=== PATIENT | female | born 1955 | race African-American/Black ===

== ENCOUNTER → 2018-08-18 | Outpatient (CLI) | payer MEDICARE, MEDICAID | END | disposition home or self-care (01) | LOC: US 10:40 | PROVIDERS: ATTEND Internal Medicine | DX: K76.0 Fatty (change of) liver, not elsewhere classified (principal); Z90.49 Acquired absence of other specified parts of digestive tract | CPT/HCPCS: 76700; 76856 ==

== ENCOUNTER 2019-08-21 13:01 | Inpatient (IN) | payer MEDICARE, MEDICAID ==
[~2019-08-21] VITALS: Ht 175.3 cm; Wt 110.2 kg
[2019-08-21] MEDS ORDERED: AZITHROMYCIN 500 MG in DEXT 5% WATER 250 ML IV STA (14:14)
[2019-08-21] MEDS ORDERED: CEFTRIAXONE 1 G PREMIX 50 ML IV ONE (14:15)
[2019-08-21 15:37] LABS: BG BASE EXCESS 3.6 mmol/L (-2.0-2.0); BG CARBOXYHEMOGLOBIN 0.8 % (0.5-1.5); BG FRACTION INSPIRED OXYGEN 32; BG HCO3 ACT 27.8 mmol/L (22.0-26.0); BG OXYHEMOGLOBIN 95.2 % (94.0-97.0); BG PCO2 40.7 mmHg (35.0-45.0); BG PH 7.452 (7.350-7.450); BG PO2 77.8 mmHg (75.0-100.0); BG SAMPLE SITE RIGHT BRACHIAL; BG TOTAL HEMOGLOBIN 13.7 g/dL (12.0-18.0); BG VENT MODE NASAL CANNULA
[2019-08-21 18:45] LABS: BASOPHILS % 0.7 % (0.0-2.0); EOSINOPHILS % 0.1 % (0.0-5.0); HEMATOCRIT. 39.4 % (36.0-48.0); HEMOGLOBIN. 13.2 g/dL (12.0-16.0); LYMPHOCYTES % 25.3 % (20.0-50.0); MEAN CORPUSCULAR HEMOGLOBIN 29.7 pg (28.0-32.0); MEAN CORPUSCULAR VOLUME 88.3 fL (81.0-99.0); MEAN PLATELET VOLUME 8.4 fl (7.4-10.4); MONOCYTES % 14.9 % (2.0-8.0); PLATELET 304 x1000/uL (130-400); RED BLOOD CELL COUNT 4.46 mill/uL (4.2-5.4); RED CELL DISTRIBUTION WIDTH 12.3 % (11.6-14.6)
[2019-08-21 18:51] LABS: CHLORIDE 98 mEq/L (98-107)
[2019-08-21 18:54] LABS: PROTHROMBIN TIME 10.7 sec (9.6-11.0)
[2019-08-21] MEDS ORDERED: ENOXAPARIN 120MG/0.8ML SYR SUBCUT ONE (19:15)
[2019-08-21] MEDS ORDERED: DEXTROSE 50% WATER 50ML SYRINGE IV ONE (19:30)
[2019-08-21] MEDS: SODIUM CHLORIDE 0.9% 1,000 ML IV SCH (22:54)
[2019-08-21] MEDS ORDERED: ONDANSETRON HCL 4MG/2ML INJ IV PRN (23:00)
[2019-08-22 05:05] LABS: CHLORIDE 100 mEq/L (98-107)
[2019-08-22 05:07] LABS: HEMATOCRIT. 39.1 % (36.0-48.0); HEMOGLOBIN. 12.9 g/dL (12.0-16.0); MEAN CORPUSCULAR HEMOGLOBIN 29.2 pg (28.0-32.0); MEAN CORPUSCULAR VOLUME 88.3 fL (81.0-99.0); MEAN PLATELET VOLUME 8.3 fl (7.4-10.4); PLATELET 312 x1000/uL (130-400); RED BLOOD CELL COUNT 4.43 mill/uL (4.2-5.4); RED CELL DISTRIBUTION WIDTH 12.3 % (11.6-14.6)
[2019-08-22 05:14] LABS: CREATINE KINASE 81 IU/L (26-192)
[2019-08-22 05:16] LABS: CREATINE KINASE MB FRACTION < 1.0 ng/mL (0.5-3.6)
[2019-08-22 07:33] LABS: ATYPICAL LYMPHOCYTES 1; PLATELET ESTIMATE NORMAL
[2019-08-22] MEDS ORDERED: LIDOCAINE HCL/PF 1% 2ML VIAL ONE (09:46)
[2019-08-22] MEDS: SODIUM CHLORIDE 0.9% 1,000 ML IV SCH (12:14)
[2019-08-22] MEDS: CEFTRIAXONE 1 G PREMIX 50 ML IV SCH ×2 (15:00→18:43)
[2019-08-22] MEDS ORDERED: AZITHROMYCIN 500 MG in DEXT 5% WATER 250 ML IV SCH (15:00)
[2019-08-22] MEDS ORDERED: FUROSEMIDE 20MG/2ML VIAL IVP SCH (15:15)
[2019-08-22 15:32] LABS: BG BASE EXCESS 2.1 mmol/L (-2.0-2.0); BG CARBOXYHEMOGLOBIN 0.7 % (0.5-1.5); BG DEOXYHEMOGLOBIN 8.8 % (0.0-5.0); BG HCO3 ACT 25.1 mmol/L (22.0-26.0); BG METHEMOGLOBIN 0.3 % (0.0-1.5); BG OXYGEN SATURATION 91.1 % (92.0-98.5); BG OXYHEMOGLOBIN 90.2 % (94.0-97.0); BG PCO2 34.3 mmHg (35.0-45.0); BG PH 7.483 (7.350-7.450); BG PO2 59.1 mmHg (75.0-100.0); BG SAMPLE SITE LEFT RADIAL; BG TOTAL HEMOGLOBIN 13.5 g/dL (12.0-18.0); BG VENT MODE ROOM AIR
[2019-08-22] MEDS ORDERED: POTASSIUM CHLORIDE INJ 40 MEQ in DEXT 5% WATER 250 ML IV NR (16:30)
[2019-08-22] MEDS: ENOXAPARIN 30MG/0.3ML SYR SUBCUT SCH (22:30)
[2019-08-22 22:34] VITALS: BP 132/58
[2019-08-23 04:00] VITALS: BP 117/75
[2019-08-23 08:00] VITALS: BP 143/79
[2019-08-23] MEDS ORDERED: CEFTRIAXONE 1 G PREMIX 50 ML IV SCH (09:00)
[2019-08-23] MEDS ORDERED: AZITHROMYCIN 250 MG in DEXT 5% WATER 250 ML IV SCH (09:00)
[2019-08-23 09:50] LABS: HEMATOCRIT. 41.8 % (36.0-48.0); HEMOGLOBIN. 13.7 g/dL (12.0-16.0); MEAN CORPUSCULAR HEMOGLOBIN 29.3 pg (28.0-32.0); MEAN CORPUSCULAR VOLUME 89.6 fL (81.0-99.0); MEAN PLATELET VOLUME 8.5 fl (7.4-10.4); PLATELET 337 x1000/uL (130-400); RED BLOOD CELL COUNT 4.67 mill/uL (4.2-5.4); RED CELL DISTRIBUTION WIDTH 12.1 % (11.6-14.6)
[2019-08-23 09:57] LABS: CHLORIDE 101 mEq/L (98-107)
[2019-08-23] MEDS: ENOXAPARIN 30MG/0.3ML SYR SUBCUT SCH ×2 (10:04→22:18)
[2019-08-23 10:07] LABS: CREATINE KINASE MB FRACTION < 1.0 ng/mL (0.5-3.6)
[2019-08-23 10:18] LABS: PLATELET ESTIMATE NORMAL
[2019-08-23 12:00] VITALS: BP 128/68
[2019-08-23] MEDS ORDERED: AZITHROMYCIN 500 MG in DEXT 5% WATER 250 ML IV SCH (15:00)
[2019-08-23] MEDS: AZITHROMYCIN 250 MG TABLET PO SCH (15:17)
[2019-08-23 16:00] VITALS: BP 127/71
[2019-08-23] MEDS ORDERED: FUROSEMIDE 20MG/2ML VIAL IVP NR (16:15)
[2019-08-23] MEDS: CEFTRIAXONE SODIUM 1 G/VIAL IM SCH (16:57)
[2019-08-23] MEDS: LIDOCAINE HCL/PF 1% 10 MG/ML 5ML VIAL IJ SCH (16:57)
[2019-08-23] MEDS ORDERED: FUROSEMIDE 20MG TABLET PO ONE (17:00)
[2019-08-23] MEDS ORDERED: FUROSEMIDE 20MG TABLET PO NR (17:00)
[2019-08-23 18:16] LABS: COVID-19 PCR RNA DETECTED
[2019-08-23 18:17] LABS: COVID-19 PCR RNA NOT DETECTED
[2019-08-24] VITALS: BP 114/59
[2019-08-24 04:00] VITALS: BP 144/87
[2019-08-24 08:00] VITALS: BP 134/100
[2019-08-24] MEDS: ENOXAPARIN 30MG/0.3ML SYR SUBCUT SCH ×2 (09:26→22:05)
[2019-08-24] MEDS: CEFTRIAXONE SODIUM 1 G/VIAL IM SCH (09:27)
[2019-08-24] MEDS: AZITHROMYCIN 250 MG TABLET PO SCH (09:27)
[2019-08-24] MEDS: LIDOCAINE HCL/PF 1% 10 MG/ML 5ML VIAL IJ SCH (09:28)
[2019-08-24 12:00] VITALS: BP 140/75
[2019-08-24 16:00] VITALS: BP 121/61
[2019-08-24] MEDS ORDERED: POTASSIUM CHLORIDE 20MEQ TABLET SR PO NR (16:14)
[2019-08-24 20:00] VITALS: BP 109/70
[2019-08-24] MEDS: ACETAMINOPHEN 325MG TABLET PO PRN (22:05)
[2019-08-25] VITALS: BP 139/75
[2019-08-25 04:00] VITALS: BP 154/81
[2019-08-25 06:00] VITALS: BP 154/81
[2019-08-25] MEDS: SODIUM CHLORIDE 0.9% 1,000 ML IV SCH ×2 (06:40→21:48)
[2019-08-25 08:00] VITALS: BP 123/78
[2019-08-25] MEDS: ENOXAPARIN 30MG/0.3ML SYR SUBCUT SCH ×2 (09:28→21:43)
[2019-08-25] MEDS: AZITHROMYCIN 250 MG TABLET PO SCH (09:28)
[2019-08-25] MEDS: LIDOCAINE HCL/PF 1% 10 MG/ML 5ML VIAL IJ SCH (09:29)
[2019-08-25] MEDS: CEFTRIAXONE SODIUM 1 G/VIAL IM SCH (09:29)
[2019-08-25 10:19] LABS: HEMATOCRIT. 39.7 % (36.0-48.0); MEAN CORPUSCULAR HEMOGLOBIN 29.2 pg (28.0-32.0); MEAN CORPUSCULAR VOLUME 88.8 fL (81.0-99.0); MEAN PLATELET VOLUME 8.7 fl (7.4-10.4); PLATELET 415 x1000/uL (130-400); RED BLOOD CELL COUNT 4.47 mill/uL (4.2-5.4); RED CELL DISTRIBUTION WIDTH 12.3 % (11.6-14.6)
[2019-08-25 10:28] LABS: CHLORIDE 106 mEq/L (98-107)
[2019-08-25 11:49] LABS: PLATELET ESTIMATE INCREASED
[2019-08-25 12:00] VITALS: BP 146/82
[2019-08-25] MEDS: POTASSIUM CHLORIDE 20MEQ TABLET SR PO SCH (18:01)
[2019-08-25 20:00] VITALS: BP 150/82
[2019-08-26] VITALS: BP 134/67
[2019-08-26 04:00] VITALS: BP 147/73
[2019-08-26] MEDS: POTASSIUM CHLORIDE 20MEQ TABLET SR PO SCH (04:58)
[2019-08-26] MEDS ORDERED: POTASSIUM CHLORIDE 20MEQ TABLET SR PO SCH (05:00)
[2019-08-26 08:00] VITALS: BP 152/56
[2019-08-26] MEDS: LIDOCAINE HCL/PF 1% 10 MG/ML 5ML VIAL IJ SCH (10:00)
[2019-08-26] MEDS: CEFTRIAXONE SODIUM 1 G/VIAL IM SCH (10:00)
[2019-08-26] MEDS: AZITHROMYCIN 250 MG TABLET PO SCH (10:01)
[2019-08-26] MEDS: SODIUM CHLORIDE 0.9% 1,000 ML IV SCH ×2 (10:01→21:36)
[2019-08-26] MEDS: ACETAMINOPHEN 325MG TABLET PO PRN (10:01)
[2019-08-26] MEDS: ENOXAPARIN 30MG/0.3ML SYR SUBCUT SCH ×2 (10:01→21:36)
[2019-08-26 12:00] VITALS: BP 145/73
[2019-08-26 16:00] VITALS: BP 146/76
[2019-08-26 20:53] VITALS: BP 145/64
[2019-08-27 00:48] VITALS: BP 135/72
[2019-08-27 04:00] VITALS: BP 141/74
[2019-08-27 08:00] VITALS: BP 152/76
[2019-08-27] MEDS: LIDOCAINE HCL/PF 1% 10 MG/ML 5ML VIAL IJ SCH (09:08)
[2019-08-27] MEDS: CEFTRIAXONE SODIUM 1 G/VIAL IM SCH (09:08)
[2019-08-27] MEDS: ENOXAPARIN 30MG/0.3ML SYR SUBCUT SCH ×2 (09:08→21:07)
[2019-08-27 12:00] VITALS: BP 134/71
[2019-08-27] MEDS: SODIUM CHLORIDE 0.9% 1,000 ML IV SCH (12:33)
[2019-08-27 16:00] VITALS: BP 127/76
[2019-08-27 20:00] VITALS: BP 149/77
[2019-08-28] VITALS: BP 145/94
[2019-08-28] MEDS: SODIUM CHLORIDE 0.9% 1,000 ML IV SCH ×2 (01:00→14:09)
[2019-08-28 04:00] VITALS: BP 140/62
[2019-08-28 08:00] VITALS: BP 144/60
[2019-08-28 08:38] LABS: BASOPHILS % 0.2 % (0.0-2.0); EOSINOPHILS % 6.4 % (0.0-5.0); HEMATOCRIT. 42.1 % (36.0-48.0); HEMOGLOBIN. 13.6 g/dL (12.0-16.0); MEAN CORPUSCULAR HEMOGLOBIN 28.7 pg (28.0-32.0); MEAN CORPUSCULAR VOLUME 88.8 fL (81.0-99.0); MEAN PLATELET VOLUME 8.6 fl (7.4-10.4); MONOCYTES % 12.6 % (2.0-8.0); NEUTROPHILS % 35.8 % (40.0-76.0); PLATELET 455 x1000/uL (130-400); RED BLOOD CELL COUNT 4.74 mill/uL (4.2-5.4); RED CELL DISTRIBUTION WIDTH 12.2 % (11.6-14.6)
[2019-08-28 08:39] LABS: CHLORIDE 109 mEq/L (98-107)
[2019-08-28] MEDS: ENOXAPARIN 30MG/0.3ML SYR SUBCUT SCH ×2 (09:09→20:31)
[2019-08-28] MEDS ORDERED: POTASSIUM CHLORIDE 20MEQ TABLET SR PO NR (11:15)
[2019-08-28 12:00] VITALS: BP 129/71
[2019-08-28 16:00] VITALS: BP 129/71
[2019-08-28 20:00] VITALS: BP 127/58
[2019-08-28] MEDS: LORAZEPAM 1MG TABLET PO PRN (20:31)
[2019-08-29] VITALS: BP 149/77
[2019-08-29] MEDS: SODIUM CHLORIDE 0.9% 1,000 ML IV SCH ×2 (06:39→20:59)
[2019-08-29] MEDS: ENOXAPARIN 30MG/0.3ML SYR SUBCUT SCH ×2 (10:28→21:00)
[2019-08-29 12:00] VITALS: BP 128/83
[2019-08-29 16:00] VITALS: BP 130/66
[2019-08-29 20:00] VITALS: BP_SYST 82; BP_SYST 99; BP_DIAS 67
[2019-08-29] MEDS: LORAZEPAM 1MG TABLET PO PRN (21:00)
[2019-08-30 00:33] VITALS: BP 143/76
[2019-08-30 04:00] VITALS: BP 151/68
[2019-08-30 08:00] VITALS: BP 129/87
[2019-08-30] MEDS: ENOXAPARIN 30MG/0.3ML SYR SUBCUT SCH ×2 (09:58→21:18)
[2019-08-30 12:00] VITALS: BP 142/67
[2019-08-30 16:00] VITALS: BP 131/72
[2019-08-30 20:00] VITALS: BP 127/62
[2019-08-30] MEDS: SODIUM CHLORIDE 0.9% 1,000 ML IV SCH (20:14)
[2019-08-30] MEDS: LORAZEPAM 1MG TABLET PO PRN (21:18)
[2019-08-31] VITALS: BP 128/67
[2019-08-31 04:00] VITALS: BP 130/65
[2019-08-31 07:30] VITALS: BP 126/71
[2019-08-31] MEDS: ENOXAPARIN 30MG/0.3ML SYR SUBCUT SCH ×2 (09:24→21:26)
[2019-08-31] MEDS: SODIUM CHLORIDE 0.9% 1,000 ML IV SCH (09:34)
[2019-08-31 12:00] VITALS: BP 122/69
[2019-08-31 16:15] VITALS: BP 140/65
[2019-08-31 20:00] VITALS: BP 125/85
[2019-09-01] VITALS: BP 122/68
[2019-09-01] MEDS: LORAZEPAM 1MG TABLET PO PRN (00:21)
[2019-09-01 04:16] VITALS: BP 118/63
[2019-09-01 08:00] VITALS: BP 118/75
[2019-09-01] MEDS: ENOXAPARIN 30MG/0.3ML SYR SUBCUT SCH ×2 (10:25→20:55)
[2019-09-01 12:00] VITALS: BP 143/57
[2019-09-01 16:00] VITALS: BP 127/79
[2019-09-01 20:00] VITALS: BP 123/69
[2019-09-02] VITALS: BP 124/52
[2019-09-02 04:00] VITALS: BP 133/86
[2019-09-02] MEDS: LORAZEPAM 1MG TABLET PO PRN (04:02)
[2019-09-02 08:00] VITALS: BP 131/84
[2019-09-02] MEDS: ENOXAPARIN 30MG/0.3ML SYR SUBCUT SCH ×3 (10:42→21:14)
[2019-09-02] MEDS ORDERED: DIPHENHYDRAMINE 25MG CAPSULE PO NR (11:30)
[2019-09-02 12:00] VITALS: BP 144/80
[2019-09-02 16:00] VITALS: BP 125/61
[2019-09-02 20:00] VITALS: BP 128/74
[2019-09-02] MEDS: ZOLPIDEM TARTRATE 5MG TABLET PO PRN (22:21)
[2019-09-03] VITALS: BP 109/70
[2019-09-03 04:00] VITALS: BP 112/72
[2019-09-03 08:00] VITALS: BP 149/83
[2019-09-03] MEDS: ENOXAPARIN 30MG/0.3ML SYR SUBCUT SCH ×2 (09:37→20:34)
[2019-09-03 12:00] VITALS: BP 138/82
[2019-09-03 16:00] VITALS: BP 142/48
[2019-09-03 20:00] VITALS: BP 113/65
[2019-09-03] MEDS: ZOLPIDEM TARTRATE 5MG TABLET PO PRN (20:34)
[2019-09-04] VITALS: BP 120/65
[2019-09-04 04:00] VITALS: BP 126/62
[2019-09-04] MEDS: SODIUM CHLORIDE 0.9% 1,000 ML IV SCH ×2 (06:13→20:14)
[2019-09-04 08:00] VITALS: BP 133/84
[2019-09-04] MEDS: ENOXAPARIN 30MG/0.3ML SYR SUBCUT SCH ×2 (10:03→21:14)
[2019-09-04 12:00] VITALS: BP_SYST 133
[2019-09-04] MEDS: HYDROCORTISONE 2.5% CREAM 20GM TOP SCH (17:35)
[2019-09-04 20:00] VITALS: BP 115/51
[2019-09-04] MEDS: ZOLPIDEM TARTRATE 5MG TABLET PO PRN (22:15)
[2019-09-04] MEDS: DIPHENHYDRAMINE 25MG CAPSULE PO PRN (23:34)
[2019-09-05] VITALS: BP 128/76
[2019-09-05 04:00] VITALS: BP 124/66
[2019-09-05] MEDS: HYDROCORTISONE 2.5% CREAM 20GM TOP SCH (05:14)
[2019-09-05 08:00] VITALS: BP 130/65
[2019-09-05] MEDS: SODIUM CHLORIDE 0.9% 1,000 ML IV SCH ×2 (09:34→22:54)
[2019-09-05] MEDS: ENOXAPARIN 30MG/0.3ML SYR SUBCUT SCH ×2 (09:55→20:38)
[2019-09-05 12:00] VITALS: BP 131/69
[2019-09-05] MEDS: DIPHENHYDRAMINE 25MG CAPSULE PO PRN (12:40)
[2019-09-05 20:00] VITALS: BP 112/63
[2019-09-05] MEDS ORDERED: NYSTATIN 100,000 UNITS/GM CREAM 15GM TOP SCH (22:00)
[2019-09-06] VITALS: BP 124/59
[2019-09-06] MEDS: HYDROCORTISONE 2.5% CREAM 20GM TOP SCH ×3 (00:17→18:55)
[2019-09-06] MEDS: DIPHENHYDRAMINE 25MG CAPSULE PO PRN ×2 (00:19→06:40)
[2019-09-06 04:00] VITALS: BP 119/57
[2019-09-06 08:00] VITALS: BP 119/52
[2019-09-06] MEDS: NYSTATIN POWDER 15GM TOP SCH ×3 (10:01→17:48)
[2019-09-06] MEDS: ENOXAPARIN 30MG/0.3ML SYR SUBCUT SCH ×2 (10:01→20:00)
[2019-09-06] MEDS: SODIUM CHLORIDE 0.9% 1,000 ML IV SCH (11:18)
[2019-09-06 12:00] VITALS: BP 118/59
[2019-09-06 20:00] VITALS: BP 128/62
[2019-09-06] MEDS: ZOLPIDEM TARTRATE 5MG TABLET PO PRN (21:56)
[2019-09-07] VITALS: BP 103/55
[2019-09-07] MEDS: SODIUM CHLORIDE 0.9% 1,000 ML IV SCH ×2 (01:34→14:13)
[2019-09-07 04:00] VITALS: BP 124/63
[2019-09-07] MEDS: HYDROCORTISONE 2.5% CREAM 20GM TOP SCH ×2 (05:40→17:48)
[2019-09-07 08:00] VITALS: BP 127/76
[2019-09-07] MEDS: ENOXAPARIN 30MG/0.3ML SYR SUBCUT SCH ×2 (08:40→20:02)
[2019-09-07] MEDS: NYSTATIN POWDER 15GM TOP SCH ×3 (08:40→17:45)
[2019-09-07 12:00] VITALS: BP 124/67
[2019-09-07 16:04] VITALS: BP 112/43
[2019-09-07 20:00] VITALS: BP 119/57
[2019-09-07] MEDS: ZOLPIDEM TARTRATE 5MG TABLET PO PRN (20:14)
[2019-09-07] MEDS: DIPHENHYDRAMINE 25MG CAPSULE PO PRN (22:47)
[2019-09-08] VITALS: BP 147/90
[2019-09-08 04:00] VITALS: BP 109/53
[2019-09-08] MEDS: SODIUM CHLORIDE 0.9% 1,000 ML IV SCH ×2 (04:14→17:12)
[2019-09-08] MEDS: HYDROCORTISONE 2.5% CREAM 20GM TOP SCH ×2 (04:19→17:12)
[2019-09-08] MEDS: DIPHENHYDRAMINE 25MG CAPSULE PO PRN ×2 (04:21→20:28)
[2019-09-08 08:00] VITALS: BP 126/54
[2019-09-08] MEDS: ENOXAPARIN 30MG/0.3ML SYR SUBCUT SCH ×2 (08:39→20:44)
[2019-09-08] MEDS: NYSTATIN POWDER 15GM TOP SCH ×3 (08:40→17:12)
[2019-09-08 12:00] VITALS: BP 119/70
[2019-09-08 16:00] VITALS: BP 134/57
[2019-09-08 20:00] VITALS: BP 132/52
[2019-09-09] VITALS: BP 118/59
[2019-09-09] MEDS: DIPHENHYDRAMINE 25MG CAPSULE PO PRN ×4 (02:30→23:31)
[2019-09-09 04:00] VITALS: BP 112/52
[2019-09-09] MEDS: HYDROCORTISONE 2.5% CREAM 20GM TOP SCH ×2 (06:16→17:14)
[2019-09-09] MEDS: SODIUM CHLORIDE 0.9% 1,000 ML IV SCH ×2 (06:17→20:14)
[2019-09-09 08:00] VITALS: BP 149/74
[2019-09-09] MEDS: ENOXAPARIN 30MG/0.3ML SYR SUBCUT SCH ×2 (08:25→20:56)
[2019-09-09] MEDS: NYSTATIN POWDER 15GM TOP SCH ×3 (08:25→17:14)
[2019-09-09 12:00] VITALS: BP 120/60
[2019-09-09 16:00] VITALS: BP 130/70
[2019-09-09 20:00] VITALS: BP 120/71
[2019-09-10] VITALS: BP 121/53
[2019-09-10 04:00] VITALS: BP 114/60
[2019-09-10] MEDS: HYDROCORTISONE 2.5% CREAM 20GM TOP SCH ×2 (06:00→17:28)
[2019-09-10] MEDS: DIPHENHYDRAMINE 25MG CAPSULE PO PRN ×2 (06:00→20:57)
[2019-09-10 07:52] LABS: HEMOGLOBIN 14.4 g/dL (12.0-16.0); MEAN CORPUSCULAR HEMOGLOBIN 29.6 pg (28.0-32.0); MEAN CORPUSCULAR VOLUME 90.4 fL (81.0-99.0); PLATELET 208 x1000/uL (130-400); RED BLOOD CELL COUNT 4.87 mill/uL (4.2-5.4); RED CELL DISTRIBUTION WIDTH 13.5 % (11.6-14.6)
[2019-09-10 08:00] VITALS: BP 136/57
[2019-09-10 08:00] LABS: CHLORIDE 107 mEq/L (98-107)
[2019-09-10] MEDS: ENOXAPARIN 30MG/0.3ML SYR SUBCUT SCH ×2 (08:45→20:57)
[2019-09-10] MEDS: NYSTATIN POWDER 15GM TOP SCH ×3 (08:45→17:28)
[2019-09-10] MEDS: SODIUM CHLORIDE 0.9% 1,000 ML IV SCH ×2 (09:00→20:58)
[2019-09-10 12:00] VITALS: BP 125/57
[2019-09-10 16:00] VITALS: BP 130/78
[2019-09-10 20:51] VITALS: BP 142/61
[2019-09-11] VITALS: BP 107/53
[2019-09-11] MEDS: DIPHENHYDRAMINE 25MG CAPSULE PO PRN ×3 (04:20→23:13)
[2019-09-11 04:42] VITALS: BP 108/61
[2019-09-11] MEDS: HYDROCORTISONE 2.5% CREAM 20GM TOP SCH ×2 (06:35→17:12)
[2019-09-11 08:00] VITALS: BP 127/79
[2019-09-11] MEDS: NYSTATIN POWDER 15GM TOP SCH ×3 (08:19→17:12)
[2019-09-11] MEDS: ENOXAPARIN 30MG/0.3ML SYR SUBCUT SCH ×2 (08:19→20:33)
[2019-09-11] MEDS: SODIUM CHLORIDE 0.9% 1,000 ML IV SCH (11:20)
[2019-09-11 12:00] VITALS: BP 141/63
[2019-09-11 16:00] VITALS: BP 123/60
[2019-09-11 20:44] VITALS: BP 117/55
[2019-09-12 00:09] VITALS: BP 122/74
[2019-09-12] MEDS: SODIUM CHLORIDE 0.9% 1,000 ML IV SCH ×2 (01:34→14:02)
[2019-09-12 04:00] VITALS: BP 121/68
[2019-09-12] MEDS: HYDROCORTISONE 2.5% CREAM 20GM TOP SCH ×2 (05:37→17:54)
[2019-09-12 08:00] VITALS: BP 120/59
[2019-09-12] MEDS: NYSTATIN POWDER 15GM TOP SCH ×3 (08:13→17:54)
[2019-09-12] MEDS: ENOXAPARIN 30MG/0.3ML SYR SUBCUT SCH ×2 (08:13→22:17)
[2019-09-12] MEDS: DIPHENHYDRAMINE 25MG CAPSULE PO PRN ×3 (09:09→22:17)
[2019-09-12 12:00] VITALS: BP 122/74
[2019-09-12 16:00] VITALS: BP 141/66
[2019-09-12 20:00] VITALS: BP 122/71
[2019-09-13 00:47] VITALS: BP 118/68
[2019-09-13] MEDS: SODIUM CHLORIDE 0.9% 1,000 ML IV SCH ×2 (03:41→16:14)
[2019-09-13 04:00] VITALS: BP 138/73
[2019-09-13] MEDS: DIPHENHYDRAMINE 25MG CAPSULE PO PRN ×3 (05:23→20:48)
[2019-09-13] MEDS: HYDROCORTISONE 2.5% CREAM 20GM TOP SCH ×2 (05:23→17:22)
[2019-09-13 08:00] VITALS: BP 134/66
[2019-09-13] MEDS: ENOXAPARIN 30MG/0.3ML SYR SUBCUT SCH ×2 (09:10→20:39)
[2019-09-13] MEDS: NYSTATIN POWDER 15GM TOP SCH ×3 (09:10→17:22)
[2019-09-13 12:00] VITALS: BP 115/56
[2019-09-13 16:00] VITALS: BP 108/75
[2019-09-13 20:00] VITALS: BP 105/64
[2019-09-14] VITALS: BP 109/51
[2019-09-14 04:00] VITALS: BP 132/63
[2019-09-14] MEDS: SODIUM CHLORIDE 0.9% 1,000 ML IV SCH ×2 (06:12→19:29)
[2019-09-14] MEDS: HYDROCORTISONE 2.5% CREAM 20GM TOP SCH ×2 (06:12→17:14)
[2019-09-14] MEDS: DIPHENHYDRAMINE 25MG CAPSULE PO PRN ×3 (06:29→20:31)
[2019-09-14 08:00] VITALS: BP 123/54
[2019-09-14] MEDS: NYSTATIN POWDER 15GM TOP SCH ×3 (09:00→17:14)
[2019-09-14] MEDS: ENOXAPARIN 30MG/0.3ML SYR SUBCUT SCH ×2 (10:08→20:31)
[2019-09-14 12:00] VITALS: BP 134/66
[2019-09-14 16:00] VITALS: BP 132/65
[2019-09-14 20:00] VITALS: BP 96/43
[2019-09-15] VITALS: BP 115/59
[2019-09-15 04:00] VITALS: BP 124/57
[2019-09-15] MEDS: HYDROCORTISONE 2.5% CREAM 20GM TOP SCH ×2 (04:28→18:28)
[2019-09-15] MEDS: DIPHENHYDRAMINE 25MG CAPSULE PO PRN ×3 (04:28→21:59)
[2019-09-15] MEDS: SODIUM CHLORIDE 0.9% 1,000 ML IV SCH ×2 (08:25→22:54)
[2019-09-15] MEDS: NYSTATIN POWDER 15GM TOP SCH ×3 (09:00→17:07)
[2019-09-15] MEDS: ENOXAPARIN 30MG/0.3ML SYR SUBCUT SCH ×2 (10:06→21:59)
[2019-09-15 12:00] VITALS: BP 119/54
[2019-09-15 16:00] VITALS: BP 124/69
[2019-09-15 20:00] VITALS: BP 108/54
[2019-09-16] VITALS: BP 109/46
[2019-09-16 04:00] VITALS: BP 114/53
[2019-09-16] MEDS: HYDROCORTISONE 2.5% CREAM 20GM TOP SCH ×2 (06:08→18:11)
[2019-09-16 08:00] VITALS: BP 117/69
[2019-09-16] MEDS: NYSTATIN POWDER 15GM TOP SCH ×3 (09:25→16:59)
[2019-09-16] MEDS: ENOXAPARIN 30MG/0.3ML SYR SUBCUT SCH ×2 (09:40→21:01)
[2019-09-16] MEDS: DIPHENHYDRAMINE 25MG CAPSULE PO PRN ×2 (09:40→21:01)
[2019-09-16 12:00] VITALS: BP 105/69
[2019-09-16] MEDS: SODIUM CHLORIDE 0.9% 1,000 ML IV SCH (12:14)
[2019-09-16 16:00] VITALS: BP 123/67
[2019-09-16 20:00] VITALS: BP 113/57
[2019-09-17] VITALS: BP 122/59
[2019-09-17] MEDS: SODIUM CHLORIDE 0.9% 1,000 ML IV SCH ×2 (01:34→11:09)
[2019-09-17 04:00] VITALS: BP 123/75
[2019-09-17 06:05] LABS: EOSINOPHILS % 5.1 % (0.0-5.0); HEMATOCRIT. 43.4 % (36.0-48.0); HEMOGLOBIN. 14.2 g/dL (12.0-16.0); LYMPHOCYTES % 46.1 % (20.0-50.0); MEAN CORPUSCULAR HEMOGLOBIN 29.5 pg (28.0-32.0); NEUTROPHILS % 38.8 % (40.0-76.0); PLATELET 257 x1000/uL (130-400); RED BLOOD CELL COUNT 4.83 mill/uL (4.2-5.4); RED CELL DISTRIBUTION WIDTH 13.1 % (11.6-14.6)
[2019-09-17] MEDS: HYDROCORTISONE 2.5% CREAM 20GM TOP SCH ×2 (06:07→18:51)
[2019-09-17 06:17] LABS: CHLORIDE 108 mEq/L (98-107)
[2019-09-17] MEDS: DIPHENHYDRAMINE 25MG CAPSULE PO PRN ×3 (06:31→23:04)
[2019-09-17 08:00] VITALS: BP 126/55
[2019-09-17] MEDS: ENOXAPARIN 30MG/0.3ML SYR SUBCUT SCH ×2 (09:00→21:12)
[2019-09-17] MEDS: NYSTATIN POWDER 15GM TOP SCH ×3 (09:06→17:00)
[2019-09-17 12:00] VITALS: BP 118/61
[2019-09-17 16:00] VITALS: BP 110/47
[2019-09-17 20:00] VITALS: BP 117/55
[2019-09-18] VITALS: BP 110/56
[2019-09-18 04:00] VITALS: BP 142/73
[2019-09-18] MEDS: SODIUM CHLORIDE 0.9% 1,000 ML IV SCH ×2 (04:14→16:38)
[2019-09-18] MEDS: HYDROCORTISONE 2.5% CREAM 20GM TOP SCH ×2 (06:06→18:55)
[2019-09-18 08:00] VITALS: BP 130/61
[2019-09-18] MEDS: ENOXAPARIN 30MG/0.3ML SYR SUBCUT SCH ×2 (08:53→20:54)
[2019-09-18] MEDS: DIPHENHYDRAMINE 25MG CAPSULE PO PRN ×2 (08:56→20:54)
[2019-09-18] MEDS: NYSTATIN POWDER 15GM TOP SCH ×3 (08:57→16:38)
[2019-09-18 20:00] VITALS: BP 111/48
[2019-09-19] VITALS: BP 164/67
[2019-09-19 04:00] VITALS: BP 124/79
[2019-09-19] MEDS: HYDROCORTISONE 2.5% CREAM 20GM TOP SCH (06:23)
[2019-09-19 08:00] VITALS: BP 110/59
[2019-09-19] MEDS: ENOXAPARIN 30MG/0.3ML SYR SUBCUT SCH (09:26)
[2019-09-19] MEDS: NYSTATIN POWDER 15GM TOP SCH (09:27)
[2019-09-19 11:39] VITALS: BP 110/59
== END 2019-09-19 12:10 | DRG 177 ==
LOC: ER 13:01 → ENRESERV 08-22 20:36 → 7WST 08-22 22:00 → 5WST 08-31 09:37 → 7EST 08-31 16:17 → 6EST 09-17 11:22
PROVIDERS: ADMIT Internal Medicine; ATTEND Internal Medicine
DX: U07.1 COVID-19 (principal); J96.01 Acute respiratory failure with hypoxia; J12.89 Other viral pneumonia; E43 Unspecified severe protein-calorie malnutrition; J81.1 Chronic pulmonary edema; E87.1 Hypo-osmolality and hyponatremia; G95.20 Unspecified cord compression; E66.9 Obesity, unspecified; E87.6 Hypokalemia; I10 Essential (primary) hypertension; F41.9 Anxiety disorder, unspecified; F32.9 Major depressive disorder, single episode, unspecified; E11.649 Type 2 diabetes mellitus with hypoglycemia without coma; Z68.35 Body mass index [BMI] 35.0-35.9, adult; Z99.3 Dependence on wheelchair
CPT/HCPCS: 36415; 36600; 71045; 80048; 80053; 82375; 82550; 82553; 82805; 82962; 83605; 83880; 84145; 84484; 85025; 85027; 87420; 87493; 87635; 87804; 93005; 96365; 96367; 96372; 96375; 96376; 99285; J0456; J0696; J1650; J1940; J3480; J3490; J7060; Q0163; U0003-CS